=== PATIENT | male | born 1950 | race Caucasian/White ===

== ENCOUNTER 2021-07-31 05:14 | Inpatient (IN) | payer MEDICARE, OTHER ==
[~2021-07-31] VITALS: Ht 182.9 cm; Wt 77.2 kg
[~2021-07-31 05:14] MED LIST: ACETAMINOPHEN325 M1 PO; ALBUTEROL S5 MG/1 ML INH; COLACE100 MG PO; COUMADIN2 MG PO; COUMADIN5 MG PO; FIBERSOURCE HN250 ML GT; FLOMAX0.4 MG PO; GABAPENTIN300 MG PO; HUMALOG100 UNIT/1 SUB-Q; K-SOL20 MEQ/15 GT; KEFLEX500 MG PO; LASIX20 MG PO; LISINOPRIL-HCT1 EAC2 PO; LOPERAMIDE1 MG/5 ML PO; LOPERAMIDE2 MG PO; MARINOL5 MG PO; NORCO 5-325 TA1 EACH PO; PERCOCET 10-321 EACH PO; POTASSIUM CHLO20 ME1 PO; PROAIR HFA8.5 GM INH; PROTONIX40 MG PO; PULMICORT0.5 MG/2 M INH; SENEXON8.8 MG/5 M PO; SENNA8.6 MG; TUSSIN DM CLEA118 M1 PO; ZOFRAN4 MG PO; ZOLPIDEM TARTRAT5 MG PO
[2021-07-31] MEDS ORDERED: OMEPRAZOLE20 MG PO (05:28)
[2021-07-31] MEDS ORDERED: TAMSULOSIN HCL0.4 MG PO (10:20)
[2021-07-31] MEDS ORDERED: BREO ELLIPTA I1 EACH INH (10:20)
[2021-07-31] MEDS ORDERED: LEVOTHYROXINE100 MCG PO (10:21)
[2021-07-31] MEDS ORDERED: ATORVASTATIN CA40 MG PO (10:21)
[2021-07-31] MEDS ORDERED: GABAPENTIN300 MG PO (10:22)
[2021-07-31] MEDS ORDERED: LISINOPRIL-HCT1 EAC2 PO (10:23)
--- NOTE | 2021-07-31 10:50 | NUR ---
NIH scale upon admission to MS unit is 0. No defecits noted.
--- NOTE | 2021-07-31 10:55 | NUR ---
[facility] REPORT RECIEVED FROM FILIBERTO JUAREZ. PT A+O, VSS, AND NEURO CHECKS COMPLETE WNL WITH NO DEFECITS NOTED. PT UNSTEADY WITH AMBULATION FROM , PT STATES RECENT SYMPTOMS OF VERTIGO. ADMISSION HX AND ASSESSMENT COMPLETE. PT ORIENTED TO ROOM/UNIT, CALL LIGHT IN REACH.
--- NOTE | 2021-07-31 11:20 | NUR ---
SCHEDULED MEDICATIONS ADMINISTERED, RT IN ROOM TO PERFORM NEB TX, DIET ORDER ENTERED AND DIETARY CALLED TO BRING LUNCH TRAY
--- NOTE | 2021-07-31 12:30 | NUR ---
ROUNDED ON PT RESTING IN BED WITH EYES CLOSED, BREATHING EQUAL AND UNLABORED ON RA. NO NEEDS IDENTIFIED AT THIS TIME.
--- NOTE | 2021-07-31 13:15 | NUR ---
ROUNDED ON PT, RESTING IN BED. PT REPOSITIONED, TELE IN PLAC, AND WARM BLANKETS PROVIDED. PT DENIES FURTHER NEEDS AT THIS TIME AND STATE "WANTING SOME REST" CALL LIGHT IN REACH
--- NOTE | 2021-07-31 13:52 | NUR ---
PATIENT IN BED RESTING WITH EYES CLOSED. VITALS AND I&O'S CHARTED. CALL LIGHT IN REACH. NO FURTHER NEEDS AT THIS TIME.
--- NOTE | 2021-07-31 14:09 | EKG ---
[facility] [address] [place], [place] [address] Signed Sinus rhythm with 1st degree AV block Incomplete right bundle branch block Left anterior fascicular block Minimal voltage criteria for LVH, may be normal variant ( R in aVL ) Abnormal ECG No previous ECGs available Confirmed by JOSE ANTONIO GARCIA MD ([id number]) on 07/31/2021 2:09:43 PM Electronically Signed By: JOSE ANTONIO GARCIA MD 07/31/21 1409 PATIENT NAME: YORDANDANA Electrocardiogram DATE OF : 52 PHYSICIAN: JOSE ANTONIO GARCIA MD REPORT #: [id number] REPORT IS CONFIDENTIAL AND NOT TO BE RELEASED WITHOUT AUTHORIZATION
[2021-07-31] MEDS ORDERED: ALEVE220 MG PO (15:09)
[2021-07-31] MEDS ORDERED: ADULT ASPIRIN R81 MG PO (15:10)
--- NOTE | 2021-07-31 15:10 | NUR ---
MED REC COMPLETE
--- NOTE | 2021-07-31 15:15 | NUR ---
Scheduled medication administered and assessment complete. Pt resting in bed watching tv, A+O, states no needs at this time and reports not feeling dizzy. Call light in reach.
--- NOTE | 2021-07-31 17:07 | NUR ---
In room to administer scheduled medications. Pt states "briefly had double vision", but "clears when using his glasses or looking at close objects". Pt states that he "has had this happen before, after rubbing his eyes too much." Will continue to perform neuro checks- WNL at this time. Pt tolerates dinner and states no pain or needs.
--- NOTE | 2021-07-31 18:22 | NUR ---
PATIENT IN BED RESTING WITH EYES CLOSED. VITALS AND I&O'S CHARTED. CALL LIGHT IN REACH. NO FURTHER NEEDS AT THIS TIME.
--- NOTE | 2021-07-31 19:41 | NUR ---
REPORT RECEIVED FROM LARRY DUNCAN AND [facility]. pt RESTING IN BED WITH EYES CLOSED. HR 63 ON TELE 2. NO DISTRESS NOTED.
--- NOTE | 2021-07-31 21:15 | NUR ---
pt AWAKE RESTING IN BED. ASSESSMENT COMPLETE. NEURO CHECK WNL, UNCHANGED PER REPORT. pt IS ALERT AND ORIENTED. VSS. pt DENIES ANY NEEDS. CALL LIGHT IN REACH.
--- NOTE | 2021-07-31 23:00 | NUR ---
TELE LEAD REPLACED BY MACRINA JUNG AT THIS TIME. pt DENIES ANY NEEDS.
--- NOTE | 2021-08-01 01:00 | NUR ---
CHECKED ON pt. RESTING IN BED WITH EYES CLOSED, BREATHING UNLABORED. NO DISTRESS NOTED.
--- NOTE | 2021-08-01 01:45 | NUR ---
pt SLEEPING, VSS. NEURO CHECK COMPLETE. UNCHANGED FROM START OF SHIFT. pt DENIES VERTIGO STATES "I WAS JUST A LITTLE UNSTEADY WHEN I GOT UP TO PEE EARLIER". NO REQUESTS AT THIS TIME. LIGHTS DIMMED IN ROOM.
--- NOTE | 2021-08-01 02:52 | NUR ---
CALL LIGHT ANSWERED. pt COMPLAINS OF 4/10 HEADACHE "ITS THERE". NO ADDITIONAL NEUROLOGICAL SYMPTOMS NOTED. PUPILS EQUAL, ROUND, REACTIVE TO LIGHT. ICE WATER PROVIDED. LIGHTS DIMMED IN ROOM. OFFERED pt COOL WASH CLOTH, DENIES. CALL LIGHT IN REACH.
--- NOTE | 2021-08-01 03:43 | NUR ---
CHECKED ON pt. RESTING IN BED WITH EYES CLOSED, BREATHING UNLABORED. NO DISTRESS NOTED.
--- NOTE | 2021-08-01 05:06 | NUR ---
CHECKED ON pt. RESTING IN BED WITH EYES CLOSED. BREATHING EQUAL AND UNLABORED. NO DISTRESS NOTED.
--- NOTE | 2021-08-01 06:15 | NUR ---
pt AWAKE WHEN RN ENTERS ROOM. VSS. pt DENIES FRANCISCO. NEURO CHECK COMPLETE. pt ATTEMPTS TO GET OUT OF BED, 1PA TO AMBULATE. pt GAIT UNSTEADY, FALLING TO LEFT. DIRECTED BACK INTO BED. pt UPSET, EMOTIONAL. THERAPEUTIC COMMUNICATION PROVIDED. pt ALLOWED TO REST AT THIS TIME. VERBALIZES UNDERSTANDING TO USE CALL LIGHT BEFORE GETTING OUT OF BED. CALL LIGHT IN REACH.
--- NOTE | 2021-08-01 07:30 | NUR ---
PT REPORT RECEIVED FROM SANG JUAREZ. PT RESTING IN BED AT THIS TIME. CALL LIGHT IN REACH.
--- NOTE | 2021-08-01 07:51 | NUR ---
SCHEDULED MED PROVIDED. NO OTHER NEEDS AT THIS TIME. CALL LIGHT IN REACH. IMAGING IN ROOM.
--- NOTE | 2021-08-01 08:00 | NUR ---
NIH 0 BUT PT REPORTS DOUBLE VISION.
--- NOTE | 2021-08-01 09:09 | NUR ---
SCHEDULED MEDS PROVIDED. ASSESSMENT COMPLETED. GCS 15, A&O X4. PT STATES HIS "LEFT SIDE ISN'T WORKING WELL" BUT CMS INTACT, NO DEFICITS NOTED. PT REPORTS LEFT SIDED LEAN WHEN WALKING WITH WALKER. LUNGS HAVE EXPIRATORY WHEEZING. ABD SOFT, NONTENDER, BOWEL TONES ACTIVE. PT ABLE TO ADJUST SELF IN BED WELL AND USES LEFT HAND TO EAT BREAKFAST. IV WNL, CDI, FLUSHED WELL. NO OTHER NEEDS AT THIS TIME. CALL LIGHT IN REACH.
--- NOTE | 2021-08-01 09:49 | NUR ---
PATIENT SITTING UP IN BED AT THIS TIME. VITALS AND I&O'S CHARTED. FRESH WATER GIVEN. CALL LIGHT IN REACH. NO FURTHER NEEDS AT THIS TIME.
--- NOTE | 2021-08-01 10:30 | NUR ---
Spoke with pt and he states he plans to go home. He was cleared by PT. Lives next door to his sister and she helps him. He can stay with his sister on dc if needed. Received a call from Jessica at [facility] requesting dc summary for his pcp Dr. David Hager. Pt will dc to home.
[2021-08-01] MEDS ORDERED: CLOPIDOGREL75 MG PO (11:25)
[2021-08-01] MEDS ORDERED: LIPITOR40 MG PO (11:25)
--- NOTE | 2021-08-01 12:00 | NUR ---
PT SITTING UP IN BED. LUNCH DELIVERED. NO OTHER NEEDS AT THIS TIME. CALL LIGHT IN REACH.
--- NOTE | 2021-08-02 16:11 | NUR ---
Received a call from Salo Burger, states he was discharged yesterday and his pcp has asked for the chart 3 times today and has not recieved. Let him know I can transfer him to medical records. He refuses this and cont. to berate me as the office did not receive his record. I let him know I can call and ask his record be sent to Dr. Hager. Pt stated, "I better not have to come up there or you will not like it." I then asked the pt to not make threats as when I am threatened my next step is to call the police. Pt quickly back tracks and states he is not making threats. I again assured him, I will call medical records and ask if they can send the record today. Let him know there is a process in place and it will be followed. Called and spoke with Ting from Medical records. She states they have not had anyh request for this chart. Hospitalist had documented notes go to Dr. Hager's office and they have gone daily. She will electronically send the chart, she states some of the chart has not been signed, but she will send since the pt has a Appt tomorrow.
== END 2021-08-01 13:30 | disposition home or self-care (01) | DRG 66 ==
LOC: ED 05:14 → MS 09:37
PROVIDERS: ADMIT Internal Medicine; ATTEND Internal Medicine
DX: I63.9 Cerebral infarction, unspecified (principal); I10 Essential (primary) hypertension; J44.9 Chronic obstructive pulmonary disease, unspecified; E78.5 Hyperlipidemia, unspecified; E03.9 Hypothyroidism, unspecified; Z20.822 Contact with and (suspected) exposure to COVID-19; K21.9 Gastro-esophageal reflux disease without esophagitis; G89.4 Chronic pain syndrome; J42 Unspecified chronic bronchitis; J45.909 Unspecified asthma, uncomplicated; F17.200 Nicotine dependence, unspecified, uncomplicated; Z86.718 Personal history of other venous thrombosis and embolism; Z92.3 Personal history of irradiation; Z85.9 Personal history of malignant neoplasm, unspecified; Z98.890 Other specified postprocedural states; Z79.899 Other long term (current) drug therapy; Z79.890 Hormone replacement therapy; Z79.82 Long term (current) use of aspirin
CPT/HCPCS: 36415; 70450; 70496; 70498; 80053; 80061; 83036; 83735; 84484; 85025; 85610; 85730; 87502; 93005; 93010; 93306; 94640; 94760; 97161; 99285-25; A9270; C9803; J1650; J7030; Q9967; U0003

== ENCOUNTER 2021-08-06 09:02 | Emergency (ER) | payer MEDICARE, OTHER ==
[~2021-08-06] VITALS: Ht 182.9 cm; Wt 77.7 kg
[~2021-08-06 09:02] MED LIST changes: +ADULT ASPIRIN R81 MG PO; +ALEVE220 MG PO; +ATORVASTATIN CA40 MG PO; +BREO ELLIPTA I1 EACH INH; +CLOPIDOGREL75 MG PO; +LEVOTHYROXINE100 MCG PO; +LIPITOR40 MG PO; +OMEPRAZOLE20 MG PO; +TAMSULOSIN HCL0.4 MG PO
[2021-08-06] MEDS ORDERED: HYDROCODON-ACE1 EA10 PO (10:27)
[2021-08-06] MEDS ORDERED: ONDANSETRON ODT8 MG PO (11:27)
== END 2021-08-06 11:49 | disposition home or self-care (01) ==
LOC: ED 09:02
DX: R51.9 Headache, unspecified (principal); Z86.73 Personal history of transient ischemic attack (TIA), and cerebral infarction without residual deficits; J45.909 Unspecified asthma, uncomplicated; I10 Essential (primary) hypertension; E78.5 Hyperlipidemia, unspecified; Z86.718 Personal history of other venous thrombosis and embolism; F17.200 Nicotine dependence, unspecified, uncomplicated; Z79.899 Other long term (current) drug therapy; Z79.51 Long term (current) use of inhaled steroids
CPT/HCPCS: 36415; 70450; 80053; 85025; 96374; 96375; 96376; 99284-25; J1170; J2405

== ENCOUNTER 2021-12-20 04:04 | Emergency (ER) | payer MEDICARE, OTHER ==
[~2021-12-20] VITALS: Ht 182.9 cm; Wt 77.6 kg
[~2021-12-20 04:04] MED LIST changes: +HYDROCODON-ACE1 EA10 PO; +ONDANSETRON ODT8 MG PO
[2021-12-20] MEDS ORDERED: TRANSDERM-SCOP1 EACH TD (04:14)
[2021-12-20] MEDS ORDERED: TAMSULOSIN HCL0.4 MG PO (04:15)
[2021-12-20] MEDS ORDERED: MECLIZINE HCL25 MG PO (04:15)
--- NOTE | 2021-12-23 20:50 | EKG ---
[facility] [address] [place] [address] Signed Sinus tachycardia with 1st degree AV block Left anterior fascicular block Abnormal ECG When compared with ECG of 31-JUL-2021 05:46, Vent. rate has increased BY 37 BPM Incomplete right bundle branch block is no longer present Confirmed by Doris Skinner MD () on 12/23/2021 8:50:46 PM Electronically Signed By: DORIS SKINNER MD 12/23/212049 PATIENT NAME: DANA FARR JEAN Electrocardiogram DATE OF : 52 PHYSICIAN: DORIS SKINNER MD REPORT #: [id number] REPORT IS CONFIDENTIAL AND NOT TO BE RELEASED WITHOUT AUTHORIZATION
== END 2021-12-20 05:50 | disposition home or self-care (01) ==
LOC: ED 04:04
DX: R00.2 Palpitations (principal); I10 Essential (primary) hypertension; J45.909 Unspecified asthma, uncomplicated; E78.5 Hyperlipidemia, unspecified; Z86.73 Personal history of transient ischemic attack (TIA), and cerebral infarction without residual deficits; F17.200 Nicotine dependence, unspecified, uncomplicated; Z79.899 Other long term (current) drug therapy
CPT/HCPCS: 36415; 71045; 80053; 83735; 83880; 84443; 84484; 85025; 93005; 93010; 99285-25; J7030

== ENCOUNTER 2023-11-27 09:15 | Emergency (ER) | payer MEDICARE, OTHER ==
[~2023-11-27] VITALS: Ht 182.9 cm; Wt 84.1 kg
[~2023-11-27 09:15] MED LIST changes: +MECLIZINE HCL25 MG PO; +TRANSDERM-SCOP1 EACH TD
[2023-11-27] MEDS ORDERED: levETIRAcetam 500 MG/5 ML VIAL IV ONE (09:30)
[2023-11-27] MEDS ORDERED: DEXTROSE 5% - NACL 0.9% 1,000 ML IV SCH (09:30)
[2023-11-27 09:43] LABS: BASOPHILS 0.9 % (0-2); EOSINOPHILS 2.5 % (0-6); HEMATOCRIT 46.7 % (35.0-50.0); HEMOGLOBIN 15.8 g/dL (12.0-18.0); LYMPHOCYTES 19.9 % (24-44); MCH 31.6 (27-36); MCHC 33.9 g/dl (30-36); MCV 93.2 fl (81-99); MONOCYTES 6.9 % (0-12); NEUTROPHILS 69.8 % (39-80); PLATELET COUNT 238 K/uL (140-440); RBC 5.02 M/ul (4.3-5.7); RDW 13.5 (10.5-15.0)
[2023-11-27] MEDS ORDERED: ondansetron HCL 4 MG/2 ML VIAL IV ONE (10:00)
[2023-11-27] MEDS ORDERED: LORazepam 2 MG/ML VIAL IV ONE (10:00)
[2023-11-27 10:01] LABS: ALBUMIN 4.3 g/dL (3.4-5.0); ALCOHOL, MEDICAL <3 ng/dL (<3); ALKALINE PHOSPHATASE 100 U/L (46-116); ALT (SGPT) 29 U/L (14-59); ANION GAP 14.7 (7-21); AST (SGOT) 24 U/L (15-37); BILIRUBIN, TOTAL 1.9 ng/dL (0.2-1.0); BUN/CREATININE RATIO 18.42 (6.0-28.6); CALCIUM 9.5 mg/dL (8.5-10.1); CARBON DIOXIDE 27 mmol/L (21-32); CHLORIDE 101 mmol/L (98-107); CREATININE, SERUM 1.14 mg/dL (0.70-1.30); GLOMERULAR FILTRATION RATE,EST 68 mL/min (>60); MAGNESIUM 1.9 mg/dL (1.8-2.4); POTASSIUM 3.7 mmol/L (3.5-5.1); PROTEIN, TOTAL 7.6 g/dL (6.4-8.2); UREA NITROGEN 21 mg/dL (7-18)
[2023-11-27 14:03] LABS: BILIRUBIN, URINE NEGATIVE (negative); BLOOD/HGB, URINE NEGATIVE (Negative); KETONE, URINE NEGATIVE (Negative); LEUK ESTERASE, URINE NEGATIVE (negative); NITRITE, URINE NEGATIVE (negative)
[2023-11-27 14:34] LABS: AMPHETAMINES, URINE NEGATIVE (NEGATIVE); BARBITURATES, URINE NEGATIVE (NEGATIVE); BENZODIAZEPINE, URINE NEGATIVE (NEGATIVE); BUPRENORPHINE, URINE NEGATIVE (NEGATIVE); CANNABINOID, URINE POSITIVE (NEGATIVE); COCAINE, URINE NEGATIVE (NEGATIVE); ECSTASY, URINE NEGATIVE (NEGATIVE); FENTANYL, URINE NEGATIVE (NEGATIVE); METHADONE, URINE NEGATIVE (NEGATIVE); OPIATES, URINE NEGATIVE (NEGATIVE); OXYCODONE, URINE NEGATIVE (NEGATIVE); PHENCYCLIDINE, URINE NEGATIVE (NEGATIVE)
[2023-11-27] MEDS ORDERED: CEFTRIAXONE/SODIUM CHLORIDE 2 GM/100 ML PIGGYBACK IV ONE (15:30)
[2023-11-27 20:30] VITALS: BP 127/80
--- NOTE | 2023-11-27 21:38 | EKG ---
[facility] [address] [place] [address] Signed Sinus rhythm with 1st degree AV block Left axis deviation Nonspecific intraventricular block Minimal voltage criteria for LVH, may be normal variant ( R in aVL ) Abnormal ECG When compared with ECG of 20-DEC-2021 04:02, QRS duration has increased Confirmed by Doris Skinner MD () on 11/27/2023 9:37:57 PM Electronically Signed By: DORIS SKINNER MD 11/27/23 2138 PATIENT NAME: DANA FARR JEAN Electrocardiogram DATE OF : 52 PHYSICIAN: DORIS SKINNER MD REPORT #: [id number] REPORT IS CONFIDENTIAL AND NOT TO BE RELEASED WITHOUT AUTHORIZATION
== END 2023-11-27 20:30 | disposition short-term general hospital (02) ==
LOC: ED 09:15
PROVIDERS: Emergency Medicine
DX: G40.409 Other generalized epilepsy and epileptic syndromes, not intractable, without status epilepticus (principal); G45.0 Vertebro-basilar artery syndrome; I65.03 Occlusion and stenosis of bilateral vertebral arteries; I10 Essential (primary) hypertension; E78.5 Hyperlipidemia, unspecified; J45.909 Unspecified asthma, uncomplicated; F17.200 Nicotine dependence, unspecified, uncomplicated; Z86.73 Personal history of transient ischemic attack (TIA), and cerebral infarction without residual deficits; Z86.718 Personal history of other venous thrombosis and embolism; Z87.891 Personal history of nicotine dependence; Z79.01 Long term (current) use of anticoagulants; Z79.899 Other long term (current) drug therapy; Z79.890 Hormone replacement therapy; Z79.82 Long term (current) use of aspirin
CPT/HCPCS: 36415; 70496; 70498; 70553; 71045; 80053; 80307; 81003; 83735; 84484; 85025; 93005; 93010; 96375; 99285-25; A9577; G0480; J1953; J2060; J2405; J7042; Q9967; U0002